=== PATIENT | female | born 1975 | race Caucasian/White ===

== ENCOUNTER 2016-10-24 13:37 | Observation (INO) | payer MEDICAID ==
[2016-10-24] MEDS ORDERED: Sodium Chloride 0.9% 10 ML Syringe FLUSH PRN (13:54)
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
[2016-10-24] MEDS ORDERED: Sodium Chloride 0.9% 1,000 ML IV SCH (14:15)
[2016-10-24] MEDS ORDERED: HYDROmorphone 1 MG/ML Syringe IM ONE (14:19)
[2016-10-24 14:28] LABS: CHLORIDE,CL 102 mmol/L (98-107); SODIUM,NA 138 mmol/L (136-145)
[2016-10-24] MEDS ORDERED: HYDROmorphone 1 MG/ML Syringe IVPUSH ONE (16:16)
[2016-10-24] MEDS ORDERED: Iopamidol 612 MG/ML 100 ML Bottle IVPUSH ONE (16:50)
[2016-10-24] MEDS ORDERED: Ondansetron 4 MG/2 ML SDV IM ONE (16:58)
[2016-10-24] MEDS ORDERED: Sodium Chloride 0.9% 100 ML IV SCH (17:00)
[2016-10-24] MEDS ORDERED: Acetaminophen/HYDROcodone 325-5 MG Tab PO PRN (17:10)
[2016-10-24] MEDS ORDERED: Ondansetron 4 MG Tab.DIS PO PRN (17:10)
[2016-10-24] MEDS: Sodium Chloride 0.9% 1,000 ML IV SCH (19:03)
[2016-10-24 20:50] LABS: CHLORIDE,CL 108 mmol/L (98-107); SODIUM,NA 141 mmol/L (136-145)
[2016-10-24] MEDS: Ibuprofen 200 MG Tab PO PRN (21:24)
[2016-10-25] MEDS: Sodium Chloride 0.9% 1,000 ML IV SCH (03:10)
[2016-10-25] MEDS: Ibuprofen 200 MG Tab PO PRN (03:20)
[2016-10-25] MEDS ORDERED: Ibuprofen 200 MG Tab PO SCH (09:00)
[2016-10-25 09:28] VITALS: BP 113/61
[2016-10-25] MEDS ORDERED: Sodium Chloride 0.9% 10 ML Syringe FLUSH PRN (09:41)
[2016-10-25 10:02] LABS: CHLORIDE,CL 109 mmol/L (98-107); SODIUM,NA 141 mmol/L (136-145)
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
== END 2016-10-25 12:15 | disposition home or self-care (01) ==
LOC: VM.ED 13:37 → VM.MS 17:05
PROVIDERS: ADMIT Nurse Practitioner; ATTEND Nurse Practitioner
DX: S30.1XXA Contusion of abdominal wall, initial encounter (principal); Z91.09 Other allergy status, other than to drugs and biological substances; Z79.899 Other long term (current) drug therapy; Z98.890 Other specified postprocedural states; Z90.710 Acquired absence of both cervix and uterus; V86.59XA Driver of other special all-terrain or other off-road motor vehicle injured in nontraffic accident, initial encounter; Y93.89 Activity, other specified
CPT/HCPCS: 36415; 71010; 71260; 72020; 73502; 74000; 74177; 80053; 81001; 82150; 83690; 85025; 85027; 96361; 96374; 96375; 99285; A9270; J7030; J7050; Q9967; G0378; J1170; J2405